=== PATIENT | female | born 1955 | race Caucasian/White ===

== ENCOUNTER 2017-02-09 13:31 | Observation (INO) | payer OTHER ==
[~2017-02-09] VITALS: Ht 152.4 cm; Wt 83.1 kg
[2017-02-09] VITALS (10 sets, daily range): BP systolic 90–125; BP diastolic 52–81
[~2017-02-09 13:31] MED LIST: ADVAIR 250/501 DISK IH; ASPIR-LOW81 MG PO; ATORVASTATIN CA10 MG PO; AZITHROMYCIN500 M1 PO; CLEOCIN300 MG PO; CLINDAMYCIN HC300 MG PO; FERROUS SULFAT325 MG PO; INCRUSE ELLI62.5 MCG IH; IRON18 MG PO; LASIX20 MG PO; LIPITOR20 MG PO; LO-DOSE ASPIRIN81 M2 PO; MULTIPLE VITAM1 EAC1 PO; NICOTINE PATCH1 EAC1 TD; SPIRIVA1 INHALATI IH; VENTOLIN HFA18 GM IH; VITAMIN B122500 MCG PO; ZITHROMAX500 MG PO
[2017-02-09 14:40] LABS: HEMATOCRIT 20.6 % (36.0-46.0); INTER. NORMALIZED RATIO 1.1; MEAN PLAT.VOLUME 9.7 uM^3 (9.5-12.4); PLATELET COUNT 120 K/uL (156-360); PROTHROMBIN TIME 10.9 (9.2-11.2); PTT 26.8 (25-32); RED BLOOD COUNT 2.06 M/uL (3.80-5.20); WHITE BLOOD COUNT 3.7 K/uL (4.1-10.2)
[2017-02-09 14:42] LABS: CHLORIDE 104 mEq/L (99-109); POTASSIUM 3.8 mEq/L (3.7-5.4); SODIUM 139 mEq/L (136-147)
[2017-02-09 14:43] LABS: GLUCOSE 88 mg/dL (70-99)
[2017-02-09 14:45] LABS: ANION GAP 9 MEQ/L (2-14)
[2017-02-09 14:47] LABS: GFR ESTIMATE (CALCULATED) > 59 mL/min/
[2017-02-09 14:48] LABS: UREA NITROGEN (BUN) 11 mg/dL (9-23)
[2017-02-09] MEDS ORDERED: LASIX20 MG PO (15:10)
[2017-02-09] MEDS ORDERED: FLONASE16 G1 BOTH NARES (15:11)
[2017-02-09] MEDS ORDERED: LEVOCETIRIZINE D5 MG PO (15:12)
[2017-02-10 03:18] VITALS: BP 105/58
[2017-02-10 06:58] VITALS: BP 106/54
[2017-02-10 07:16] LABS: HEMATOCRIT 27.1 % (36.0-46.0); MCH 32.2 PG (29.0-34.0); MCHC 33.6 G/DL (30.0-36.0); MEAN PLAT.VOLUME 10.2 uM^3 (9.5-12.4); PLATELET COUNT 105 K/uL (156-360); RBC DIS.WIDTH-CV 19.3 % (11.8-14.6); RBC DIS.WIDTH-SD 50.9 % (39-53); WHITE BLOOD COUNT 3.5 K/uL (4.1-10.2)
[2017-02-10 07:17] LABS: MCV 95.8 FL (83-99); RED BLOOD COUNT 2.83 M/uL (3.80-5.20)
[2017-02-10 11:00] VITALS: BP 109/56
== END 2017-02-10 15:35 | disposition home or self-care (01) ==
LOC: EME 13:31 → EDOF 15:04 → 5EAST 15:04
PROVIDERS: Emergency Medicine; Hospitalist; Internal Medicine
PROC: 30233N1 Transfusion of Nonautologous Red Blood Cells into Peripheral Vein, Percutaneous Approach (ICD-10-PCS; principal; 2017-02-09)
DX: D61.810 Antineoplastic chemotherapy induced pancytopenia (principal); T45.1X5A Adverse effect of antineoplastic and immunosuppressive drugs, initial encounter; D46.9 Myelodysplastic syndrome, unspecified; C90.00 Multiple myeloma not having achieved remission; E11.9 Type 2 diabetes mellitus without complications; I10 Essential (primary) hypertension; E78.5 Hyperlipidemia, unspecified; F17.200 Nicotine dependence, unspecified, uncomplicated
CPT/HCPCS: 80048; 82948; 85027; 85610; 85730; 86900; 86901; 86920; 94640 76; 94799; 99202; 99281; 99285; G0378; J1650; J1815; J1940; J7030; P9016; P9040

== ENCOUNTER 2017-08-28 16:04 | Observation (INO) | payer OTHER ==
[~2017-08-28] VITALS: Ht 154.9 cm; Wt 83.7 kg
[~2017-08-28 16:04] MED LIST changes: +FLONASE16 G1 BOTH NARES; +LEVOCETIRIZINE D5 MG PO; +PRAVACHOL20 MG PO
[2017-08-28 17:26] LABS: CHLORIDE 102 mEq/L (99-109); POTASSIUM 3.6 mEq/L (3.7-5.4); SODIUM 136 mEq/L (136-147)
[2017-08-28 17:27] LABS: HEMATOCRIT 16.7 % (36.0-46.0); MCH 28.8 PG (29.0-34.0); MCHC 32.9 G/DL (30.0-36.0); MCV 87.4 FL (83-99); MEAN PLAT.VOLUME 10.4 uM^3 (9.5-12.4); RBC DIS.WIDTH-CV 13.7 % (11.8-14.6); RBC DIS.WIDTH-SD 43.6 % (39-53); WHITE BLOOD COUNT 3.4 K/uL (4.1-10.2)
[2017-08-28 17:28] LABS: GLUCOSE 99 mg/dL (70-99)
[2017-08-28 17:30] LABS: ANION GAP 10 MEQ/L (2-14); TOTAL BILIRUBIN 0.5 mg/dL (0.0-1.0)
[2017-08-28 17:32] LABS: ALKALINE PHOSPHATASE 114 IU/L (3-129); GFR ESTIMATE (CALCULATED) > 59 mL/min/
[2017-08-28 17:33] LABS: UREA NITROGEN (BUN) 5 mg/dL (9-23)
[2017-08-28 17:36] LABS: PLATELET COUNT 61 K/uL (156-360); RED BLOOD COUNT 1.91 M/uL (3.80-5.20)
[2017-08-28] MEDS ORDERED: ERGOCALCIF50000 UNIT PO (20:50)
[2017-08-28] MEDS ORDERED: METFORMIN HCL500 MG PO (20:50)
[2017-08-28] MEDS ORDERED: ZOFRAN ODT4 MG PO (20:51)
[2017-08-28 20:55] LABS: ADD MIUA? YES; BILIRUBIN NEGATIVE; BLOOD SMALL; COLOR STRAW ((YELLOW)); GLUCOSE (STRIP) NEGATIVE; KETONES NEGATIVE; LEUKOCYTES TRACE; NITRITE NEGATIVE; PROTEIN (STRIP) NEGATIVE; SPECIFIC GRAVITY 1.003 (1.000-1.030); UROBILINOGEN 0.2 MG/DL (0.2-1.0)
[2017-08-28 21:06] LABS: BACTERIA RARE /HPF; EPITHELIAL CELLS RARE /HPF; MUCUS NONE SEEN /LPF; RED BLOOD CELLS 0-5 /HPF (0-5); UCUL ADDED? NO; WHITE BLOOD CELLS 0-5 /HPF (0-5)
[2017-08-28 21:42] VITALS: BP 83/40
[2017-08-28 21:55] VITALS: BP 109/46
[2017-08-28 22:25] VITALS: BP 99/45
[2017-08-28 23:53] VITALS: BP 102/56
[2017-08-29] VITALS (10 sets, daily range): BP systolic 98–116; BP diastolic 51–62
[2017-08-29 07:20] LABS: HEMATOCRIT 25.6 % (36.0-46.0); MCH 28.7 PG (29.0-34.0); MCHC 33.6 G/DL (30.0-36.0); MCV 85.3 FL (83-99); RBC DIS.WIDTH-SD 44.1 % (39-53); WHITE BLOOD COUNT 3.9 K/uL (4.1-10.2)
[2017-08-29 07:42] LABS: IMM.PLATELET FRACTION 8.4 (1-7); MEAN PLAT.VOLUME 10.4 uM^3 (9.5-12.4); PLAT.SUFFICIENCY DECREASED; PLATELET COUNT 46 K/uL (156-360)
[2017-08-29 07:52] LABS: ANION GAP 6 MEQ/L (2-14); CHLORIDE 111 MEQ/L (99-109); GFR ESTIMATE (CALCULATED) > 59 mL/min/; GLUCOSE 90 mg/dL (70-99); POTASSIUM 4.3 MEQ/L (3.7-5.4); SAMPLE HEMOLYSIS CHECK 0; SAMPLE ICTERIC CHECK 0; SAMPLE LIPEMIA CHECK 0; UREA NITROGEN (BUN) 5 mg/dL (9-23)
[2017-08-29 07:54] LABS: SODIUM 143 MEQ/L (136-147)
== END 2017-08-29 12:07 | disposition home or self-care (01) ==
LOC: EME 16:04 → EDOF 20:54 → ENRESERV 21:03 → 5WEST 22:12 → ENPENDDIS 08-29 → 5WEST 08-29 12:07
PROVIDERS: Internal Medicine
PROC: 30233N1 Transfusion of Nonautologous Red Blood Cells into Peripheral Vein, Percutaneous Approach (ICD-10-PCS; principal; 2017-08-28)
DX: D61.818 Other pancytopenia (principal); D46.9 Myelodysplastic syndrome, unspecified; D63.8 Anemia in other chronic diseases classified elsewhere; I10 Essential (primary) hypertension; E78.5 Hyperlipidemia, unspecified; M79.89 Other specified soft tissue disorders; F17.200 Nicotine dependence, unspecified, uncomplicated; Z82.49 Family history of ischemic heart disease and other diseases of the circulatory system; Z83.3 Family history of diabetes mellitus; E11.9 Type 2 diabetes mellitus without complications; E87.6 Hypokalemia; J44.9 Chronic obstructive pulmonary disease, unspecified; Z88.0 Allergy status to penicillin
CPT/HCPCS: 80048; 80053; 81003; 85027; 86850; 86900; 86901; 86920; 94640; 94640 76; 94799; 99202; 99281; 99285; G0378; J1200; J2405; J7030; P9016